=== PATIENT | male | born 1990 | race American Indian/Alaskan Native ===

== ENCOUNTER 2017-12-03 01:08 | Emergency (ER) | payer SELFPAY ==
[2017-12-03 01:17] VITALS: TEMP 98.4
[2017-12-03 01:24] VITALS: O2SAT 100
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
[2017-12-03 02:30] VITALS: BP 116/74; PULSE 62; RESP 16
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
== END 2017-12-03 02:05 | disposition home or self-care (01) ==
LOC: ED 01:08
DX: S63.91XA Sprain of unspecified part of right wrist and hand, initial encounter (principal); W22.8XXA Striking against or struck by other objects, initial encounter; Y92.9 Unspecified place or not applicable